=== PATIENT | male | born 1970 | race Caucasian/White ===

== ENCOUNTER 2017-11-17 10:38 | Emergency (ER) | payer MEDICAID ==
[~2017-11-17] VITALS: Ht 172.7 cm; Wt 88.0 kg
[2017-11-17 10:40] VITALS: BP 132/78
== END 2017-11-17 12:26 | disposition home or self-care (01) ==
LOC: ED 11:30
DX: S43.51XA Sprain of right acromioclavicular joint, initial encounter (principal); T16.1XXA Foreign body in right ear, initial encounter; F17.210 Nicotine dependence, cigarettes, uncomplicated; X58.XXXA Exposure to other specified factors, initial encounter; Y93.89 Activity, other specified; Y92.89 Other specified places as the place of occurrence of the external cause; Y99.8 Other external cause status
CPT/HCPCS: 69200; 99284